=== PATIENT | female | born 1945 | race Caucasian/White ===

== ENCOUNTER → 2016-11-23 | Outpatient (CLI) | payer BC, OTHER ==
[~2016-11-23] MED LIST: ASPI-461 PO; B-CO1CAP5 PO; CALCTAB5 PO; CHOL1000 PO; DULO60CA44 PO; EPP3/2 IM; GLUC10007 PO; MAGN250T22 PO; OMEG10007 PO; POTA75TA PO; PRM625 PO; [UNRECOGNIZED DRUG - OTHER] PO
--- NOTE | 2016-11-23 14:19 | DIAGNOSTIC IMAGING REPORT ---
CT SINUSES WITH BRAIN LAB CT DOSE: 527.37 mGy.cm CLINICAL HISTORY: Chronic sinusitis. TECHNIQUE: Axial images of the sinuses were obtained without IV contrast. Coronal reformats were viewed. COMPARISON STUDY: None. FINDINGS: Visualized portions of the intracranial contents are unremarkable on this unenhanced exam. Mastoid air cells are clear. There is no fluid within the middle ears. Ossicles are intact. Orbits are unremarkable. No bony destruction is present. No mass is identified within the nasal cavity or the sinuses. There is no deviation of the nasal septum. There is minimal polypoid mucosal thickening of the right maxillary and ethmoid sinuses. No air-fluid levels are present. Major drainage pathways are patent. IMPRESSION: Minimal mucosal thickening of the sinuses. No evidence of acute sinusitis. Patent major drainage pathways. Electronically signed by: Julio Cesar Stephenson M.D. 11/23/2016 2:17 PM
== END | disposition home or self-care (01) ==
LOC: C.CTS 13:25
PROVIDERS: ATTEND Otolaryngology
DX: J32.9 Chronic sinusitis, unspecified (principal)

== ENCOUNTER → 2016-12-09 | Outpatient (CLI) | payer BC, OTHER ==
--- NOTE | 2016-12-15 09:57 | CODING QUERY NO DIAGNOSIS ---
TREATMENT RENDERED WITHOUT A DIAGNOSIS To promote full compliance with coding requirements relating to patient care, physician participation is requested in all cases of braille coder uncertainty. Please assist us with providing a diagnosis/symptom for the test(s) below: A diagnosis/symptom was not documented on your Order. A valid diagnosis/symptom is required to bill all insurances. Please remember that we are unable to code a diagnosis of rule out, probable, possible, questionable, or suspected. Tests that require a diagnosis: DOS: 12/09/16 * SKIN BIOPSY LEFT UPPER CHEST DIAGNOSIS: Provider Signature: Date: [facility] Once completed, please kindly fax back to [phone] For questions please call [phone]
== END | disposition home or self-care (01) ==
LOC: C.PATHSPEC 11:26
PROVIDERS: ATTEND Family Medicine
DX: L82.1 Other seborrheic keratosis (principal)

== ENCOUNTER → 2016-12-23 | Outpatient (CLI) | payer BC, OTHER ==
--- NOTE | 2016-12-23 18:26 | ECHOCARDIOGRAM REPORT ---
*NOTICE TO RECEIVING REPUBLICAN AGENCY This information is strictly Confidential and protected under [place] law. [place] law prohibits you from making any further disclosure of this information unless further disclosure is expressly permitted by the written consent of the person to whom it pertains or is authorized by law. A general authorization for the release of medical or other information is not sufficient for this purpose. Hospital accepts no responsibility if the information is made available to any other person, INCLUDING THE PATIENT. Interpretation Summary * Name: JESSE WONG Study Date: 12/23/2016 01:47 PM BP: 109/60 mmHg * Patient Location: [facility] HR: 51 * : 1945 (M/d/yyyy) Gender: Female Height: 63 in * Age: 71 yrs Ethnicity: CA Weight: 136 lb * Ordering Physician: Jabari Gaines * Performed By: Maude Lopez RCS * * Reason For Study: HEART MURMUR * BSA: 1.6 m2 * Normal biventricular systolic function. * Mild concentric left ventricular hypertrophy. * Left ventricular diastolic dysfunction. * Normal chamber dimensions. * No significant valvular abnormalities. * -- Conclusions -- * Aortic valve sclerosis mild, without significant aortic valvular stenosis. Procedure Details * A complete two-dimensional transthoracic echocardiogram was performed (2D, M-mode, Doppler and color flow Doppler). Left Ventricle * The left ventricle is normal in size. * There is borderline concentric left ventricular hypertrophy. * Ejection Fraction = 55-60%. * A full diastolic examination was done with clinical findings of Class I diastolic dysfunction. * Left ventricular systolic function is normal. * The left ventricular wall motion is normal. Right Ventricle * The right ventricle is normal in size and function. Atria * The left atrial size is normal. * Right atrial size is normal. * No ASD detected; PFO is not assessed. Mitral Valve * The mitral valve is normal. * There is no mitral valve stenosis. * There is no mitral regurgitation noted. Tricuspid Valve * The tricuspid valve is normal. * There is no tricuspid stenosis. * No tricuspid regurgitation. Aortic Valve * The aortic valve is trileaflet. * The aortic valve opens well. * Aortic valve sclerosis mild, without significant aortic valvular stenosis. * No aortic regurgitation is present. Pulmonic Valve * The pulmonic valve is not well visualized. * There is no pulmonic valvular stenosis. * There is no pulmonic valvular regurgitation. Great Vessels * The aortic root is normal size. * Normal inferior vena cava diameter and respiratory variation suggests normal central venous pressure. MMode 2D Measurements and Calculations IVSd 1.2 cm IVSs 1.6 cm LVIDd 3.8 cm LVIDs 2.8 cm LVPWd 1.2 cm LVPWs 1.1 cm IVS/LVPW 10 FS 25.7 % EDV(Teich) 63.3 ml ESV(Teich) 30.8 ml EF(Teich) 51.3 % EDV(cubed) 56.4 ml ESV(cubed) 23.1 ml EF(cubed) 59.0 % % IVS thick 37.7 % % LVPW thick -6.11 % LV mass(C)d 151.8 grams LV mass(C)dI 92.5 grams/m\S\2 LV mass(C)s 126.2 grams LV mass(C)sI 76.9 grams/m\S\2 SV(Teich) 32.5 ml SI(Teich) 19.8 ml/m\S\2 SV(cubed) 33.3 ml SI(cubed) 20.3 ml/m\S\2 Ao root diam 3.6 cm Ao root area 10.2 cm\S\2 LA dimension 2.8 cm LA/Ao 0.78 LVOT diam 1.9 cm LVOT area 2.9 cm\S\2 LVAd ap4 26.8 cm\S\2 LVLd ap4 7.7 cm EDV(MOD-sp4) 78.2 ml EDV(sp4-el) 78.9 ml LVAs ap4 15.6 cm\S\2 LVLs ap4 6.6 cm ESV(MOD-sp4) 30.1 ml ESV(sp4-el) 31.1 ml EF(MOD-sp4) 61.5 % EF(sp4-el) 60.6 % LVAd ap2 23.9 cm\S\2 LVLd ap2 8.0 cm EDV(MOD-sp2) 58.8 ml EDV(sp2-el) 60.6 ml LVAs ap2 15.3 cm\S\2 LVLs ap2 7.0 cm ESV(MOD-sp2) 28.0 ml ESV(sp2-el) 28.5 ml EF(MOD-sp2) 52.3 % EF(sp2-el) 53.1 % LVLd %diff 3.2 % EDV(MOD-bp) 68.9 ml LVLs %diff 5.3 % ESV(MOD-bp) 29.8 ml EF(MOD-bp) 56.8 % SV(MOD-sp4) 48.1 ml SI(MOD-sp4) 29.3 ml/m\S\2 SV(MOD-sp2) 30.7 ml SI(MOD-sp2) 18.7 ml/m\S\2 SV(MOD-bp) 39.1 ml SI(MOD-bp) 23.8 ml/m\S\2 SV(sp4-el) 47.8 ml SI(sp4-el) 29.1 ml/m\S\2 SV(sp2-el) 32.2 ml SI(sp2-el) 19.6 ml/m\S\2 Doppler Measurements and Calculations MV E max winifred 63.6 cm/sec MV A max winifred 70.1 cm/sec MV E/A 0.91 MV P1/2t max winifred 71.8 cm/sec MV P1/2t 103.1 msec MVA(P1/2t) 2.1 cm\S\2 MV dec slope 204.1 cm/sec\S\2 MV dec time 0.24 sec Ao V2 max 103.0 cm/sec Ao max PG 4.2 mmHg PA V2 max 76.5 cm/sec PA max PG 2.3 mmHg
== END | disposition home or self-care (01) ==
LOC: C.CPL 12:35
PROVIDERS: ATTEND Family Medicine
DX: R00.9 Unspecified abnormalities of heart beat (principal)

== ENCOUNTER → 2017-01-12 | Outpatient (CLI) | payer BC, OTHER ==
[2017-01-12 11:12] LABS: BASO % 0.5 %; BASO ABS # 0.04 K/uL (0-0.2); COMPLETE YES; HEMATOCRIT 41.7 % (37-47); IG% 0.1 %; LYMPH % 28.2 %; MEAN CELL VOLUME 93.5 fL (80-100); MEAN CORPUSCULAR HEMOGLOBIN 31.4 pg (25-34); MEAN CORPUSCULAR HGB CONC 33.6 g/dl (32-36); MEAN PLATELET VOLUME 9.2 fL (7.4-10.4); MONO % 7.6 %; NEUT % 61.6 %; PLATELET COUNT 294 K/uL (130-400); RED BLOOD COUNT 4.46 M/uL (4.2-5.4); WHITE BLOOD COUNT 7.81 K/uL (4.8-10.8)
[2017-01-12 11:26] LABS: ESTIMATED AVERAGE GLUCOSE 114 mg/dl; HA1C FLAG Normal (Normal)
[2017-01-12 11:54] LABS: ALT/SGPT 17 U/L (12-78); BLOOD UREA NITROGEN 17 mg/dl (7-18); BUN/CREATININE RATIO 18.7 (10-20); C-REACTIVE PROTEIN 0.29 mg/dl (0-0.29); CALCIUM 8.6 mg/dl (8.5-10.1); CARBON DIOXIDE 28 mmol/L (21-32); CHLORIDE 105 mmol/L (98-107); CHOLESTEROL 174 mg/dl (0-200); CREATININE 0.92 mg/dl (0.60-1.20); GLUCOSE 84 mg/dl (70-99); PHOSPHORUS 2.1 mg/dl (2.5-4.9); POTASSIUM 4.1 mmol/L (3.5-5.1); SODIUM 141 mmol/L (136-145); URIC ACID 3.5 mg/dl (2.6-7.2)
[2017-01-12 12:03] LABS: ALB/GLOB RATIO 1.1 (0.9-2); ALKALINE PHOSPHATASE 53 U/L (45-117); AST/SGOT 14 U/L (15-37); CHOLESTEROL/HDL RATIO 2.9; HDL CHOLESTEROL 59 mg/dl; LDL CHOLESTEROL CALCULATED 103 mg/dl; TRIGLYCERIDES 58 mg/dl (0-150); VERY LOW DENSITY LIPOPROT CALC 12 mg/dl
== END | disposition home or self-care (01) ==
LOC: C.LAB 10:31
PROVIDERS: ATTEND Family Medicine
DX: R73.09 Other abnormal glucose (principal); E55.9 Vitamin D deficiency, unspecified; D51.9 Vitamin B12 deficiency anemia, unspecified

== ENCOUNTER → 2017-03-06 | Outpatient (CLI) | payer BC, OTHER | END | disposition home or self-care (01) | LOC: C.MAMM 09:47 | PROVIDERS: ATTEND Family Medicine | DX: Z78.0 Asymptomatic menopausal state (principal) ==

== ENCOUNTER → 2017-10-03 | Outpatient (CLI) | payer BC, OTHER ==
--- NOTE | 2017-10-04 07:43 | MAMMOGRAPHY REPORT ---
BILATERAL DIGITAL SCREENING MAMMOGRAM WITH CAD: 10/03/2017 CLINICAL HISTORY: Routine screening. Patient has no complaints. TECHNIQUE: Bilateral CC and MLO views of the breasts with and without implant displacement views were obtained. Current study was also evaluated with a Computer Aided Detection (CAD) system. COMPARISON: Comparison is made to exams dated: 09/29/2016 mammogram, 09/17/2015 mammogram, 4 mammogram, 08/14/2013 mammogram, 08/09/2012 mammogram, and 08/08/2011 mammogram - [facility]. BREAST COMPOSITION: There are scattered areas of fibroglandular density in both breasts. FINDINGS: Bilateral subglandular silicone implants are stable compared to prior mammograms. No new suspicious mass, architectural distortion or cluster of microcalcifications is seen. IMPRESSION: ACR BI-RADS CATEGORY 1: NEGATIVE There is no mammographic evidence of malignancy. A 1 year screening mammogram is recommended. The pa tient will receive written notification of the results. Approximately 10% of breast cancers are not detected with mammography. A negative mammographic report should not delay biopsy if a clinically suggestive mass is present. Aliyah Valdes M.D. ay/:10/03/2017 15:10:02 Wire Spooler: Lorrie QUEEN(R)(M), [facility] letter sent: Normal 1/2 BI-RADS Code: ACR BI-RADS Category 1: Negative
== END | disposition home or self-care (01) ==
LOC: C.MAMM 09:09
PROVIDERS: ATTEND Family Medicine
DX: Z12.31 Encounter for screening mammogram for malignant neoplasm of breast (principal); Z98.82 Breast implant status

== ENCOUNTER → 2017-12-21 | Outpatient (CLI) | payer BC, OTHER ==
[2017-12-21 09:33] LABS: BASO % 0.5 %; BASO ABS # 0.04 K/uL (0-0.2); EOS % 1.8 %; EOS ABS # 0.14 K/uL (0-0.5); HEMATOCRIT 42.4 % (37-47); HEMOGLOBIN 14.1 g/dL (12.0-16.0); IG# 0.02 K/uL (0.00-0.02); LYMPH % 26.7 %; LYMPH ABS # 2.09 K/uL (1.2-3.4); MEAN CORPUSCULAR HEMOGLOBIN 32.3 pg (25-34); MEAN CORPUSCULAR HGB CONC 33.3 g/dl (32-36); MEAN PLATELET VOLUME 9.7 fL (7.4-10.4); MONO % 9.3 %; MONO ABS # 0.73 K/uL (0.11-0.59); NEUT % 61.4 %; PLATELET COUNT 283 K/uL (130-400); RED CELL DISTRIBUTION WIDTH CV 13.7 % (11.5-14.5); RED CELL DISTRIBUTION WIDTH SD 48.8 fL (36.4-46.3); WHITE BLOOD COUNT 7.82 K/uL (4.8-10.8)
[2017-12-21 10:02] LABS: ALBUMIN 3.4 gm/dl (3.4-5.0); ALT/SGPT 23 U/L (12-78); BLOOD UREA NITROGEN 17 mg/dl (7-18); CALCIUM 8.9 mg/dl (8.5-10.1); CARBON DIOXIDE 28 mmol/L (21-32); CHOLESTEROL 180 mg/dl (0-200); CREATININE 0.94 mg/dl (0.60-1.20); GLUCOSE 88 mg/dl (70-99); POTASSIUM 3.8 mmol/L (3.5-5.1); SODIUM 142 mmol/L (136-145); URIC ACID 3.6 mg/dl (2.6-7.2)
[2017-12-21 10:12] LABS: ALKALINE PHOSPHATASE 53 U/L (45-117); AST/SGOT 15 U/L (15-37); LDL CHOLESTEROL CALCULATED 113 mg/dl; TRANSFERRIN 201 mg/dl (200-360)
[2017-12-21 10:47] LABS: HEMOGLOBIN A1C 5.5 % (4.5-5.6)
== END | disposition home or self-care (01) ==
LOC: C.LAB 08:50
PROVIDERS: ATTEND Family Medicine
DX: R73.09 Other abnormal glucose (principal); E55.9 Vitamin D deficiency, unspecified; D51.9 Vitamin B12 deficiency anemia, unspecified; E78.9 Disorder of lipoprotein metabolism, unspecified; R53.83 Other fatigue

== ENCOUNTER → 2018-01-11 | Outpatient (CLI) | payer BC, OTHER ==
--- NOTE | 2018-01-11 10:48 | DIAGNOSTIC IMAGING REPORT ---
(BARIUM SWALLOW) ESOPHAGUS CLINICAL HISTORY: DYSPHAGIA COMPARISON STUDY: None FLUOROSCOPY TIME: 1.2 minutes. NUMBER OF FLUOROSCOPIC IMAGES: 25 FINDINGS: The patient swallowed effervescent granules and barium without difficulty. Rapid sequence swallows in the AP and lateral projections were unremarkable. There are postsurgical changes present within the cervical spine. No esophageal masses or ulcerations are visualized. The patient swallowed one half inch barium tablet without difficulty. IMPRESSION: Normal study Electronically signed by: Danilo Lawrence M.D. 01/11/2018 10:46 AM Dictated Date/Time: 01/11/2018 10:46 AM
== END | disposition home or self-care (01) ==
LOC: C.RAD 09:45
PROVIDERS: ATTEND Family Medicine
DX: R13.10 Dysphagia, unspecified (principal)

== ENCOUNTER → 2018-07-13 | Outpatient (CLI) | payer BC, OTHER ==
--- NOTE | 2018-07-13 13:46 | DIAGNOSTIC IMAGING REPORT ---
TWO VIEW CHEST CLINICAL HISTORY: Weight loss. FINDINGS: PA and lateral chest radiographs are compared to study dated 03/21/2007. The cardiomediastinal silhouette is unremarkable. Emphysema and chronic interstitial thickening are similar to previous. A nodular density projecting over the right lung base likely represents a nipple shadow. There is no airspace consolidation or pleural effusion. There is no pneumothorax. The skeletal structures are osteopenic. The bony thorax appears intact. Fusion hardware is seen in the lower cervical spine. A calcified left breast implant is noted. IMPRESSION: 1. Emphysematous change with no acute cardiopulmonary abnormality. 2. A nodular density projecting over the right lung base likely represents a nipple shadow. A repeat frontal view with nipple markers is recommended for confirmation. Electronically signed by: Troy Bauer M.D. 07/13/2018 1:44 PM Dictated Date/Time: 07/13/2018 1:42 PM
[2018-07-13 13:47] LABS: BASO % 0.6 %; BASO ABS # 0.04 K/uL (0-0.2); EOS % 0.8 %; EOS ABS # 0.06 K/uL (0-0.5); HEMATOCRIT 42.4 % (37-47); HEMOGLOBIN 13.9 g/dL (12.0-16.0); IG# 0.01 K/uL (0.00-0.02); LYMPH ABS # 1.64 K/uL (1.2-3.4); MEAN CELL VOLUME 96.6 fL (80-100); MEAN CORPUSCULAR HEMOGLOBIN 31.7 pg (25-34); MEAN CORPUSCULAR HGB CONC 32.8 g/dl (32-36); MEAN PLATELET VOLUME 10.1 fL (7.4-10.4); MONO % 8.3 %; MONO ABS # 0.59 K/uL (0.11-0.59); NEUT % 67.2 %; NEUT ABS # 4.78 K/uL (1.4-6.5); PLATELET COUNT 270 K/uL (130-400); RED CELL DISTRIBUTION WIDTH CV 13.5 % (11.5-14.5); RED CELL DISTRIBUTION WIDTH SD 47.9 fL (36.4-46.3); WHITE BLOOD COUNT 7.12 K/uL (4.8-10.8)
[2018-07-13 14:21] LABS: HEMOGLOBIN A1C 5.6 % (4.5-5.6)
[2018-07-13 14:51] LABS: ALBUMIN 3.7 gm/dl (3.4-5.0); ALKALINE PHOSPHATASE 52 U/L (45-117); ALT/SGPT 22 U/L (12-78); AST/SGOT 16 U/L (15-37); BLOOD UREA NITROGEN 16 mg/dl (7-18); CALCIUM 8.3 mg/dl (8.5-10.1); CARBON DIOXIDE 25 mmol/L (21-32); CHOLESTEROL 186 mg/dl (0-200); CREATININE 0.77 mg/dl (0.60-1.20); GLUCOSE 79 mg/dl (70-99); LDL CHOLESTEROL CALCULATED 102 mg/dl; POTASSIUM 3.9 mmol/L (3.5-5.1); SODIUM 141 mmol/L (136-145); TOTAL PROTEIN 7.1 gm/dl (6.4-8.2); TRANSFERRIN 193 mg/dl (200-360); URIC ACID 3.1 mg/dl (2.6-7.2)
== END | disposition home or self-care (01) ==
LOC: C.RAD 12:53
PROVIDERS: ATTEND Family Medicine
DX: R63.4 Abnormal weight loss (principal); R73.09 Other abnormal glucose; E55.9 Vitamin D deficiency, unspecified; D51.9 Vitamin B12 deficiency anemia, unspecified; E78.9 Disorder of lipoprotein metabolism, unspecified; R53.83 Other fatigue

== ENCOUNTER 2022-05-14 14:37 | Inpatient (IN) ==
[2022-05-14] MEDS ORDERED: ONDANSETRON INJ 2 MG/ML 2 ML VIAL IV STA ×2 (14:53→19:27)
[2022-05-14 15:40] LABS: Basophils # (auto) 0.01 K/uL (0-0.2); Basophils % (auto) 0.1 %; Eosinophils # (auto) 0.03 K/uL (0-0.5); Eosinophils % (auto) 0.3 %; Immature Granulocytes # (auto) 0.02 K/uL (0.00-0.02); Immature Granulocytes % (auto) 0.2 %; Lymphocytes # (auto) 1.15 K/uL (1.2-3.4); Lymphocytes % (auto) 10.7 %; Mean Corpuscular Hemoglobin 31.6 pg (25-34); Mean Corpuscular Volume 92.9 fL (80-100); Mean Platelet Volume 9.9 fL (7.4-10.4); Monocytes # (auto) 0.23 K/uL (0.11-0.59); Monocytes % (auto) 2.1 %; Neutrophils % (auto) 86.6 %; Platelet Count 253 K/uL (130-400); RDW Coefficient of Variation 14.3 % (11.5-14.5); RDW Standard Deviation 48.5 fL (36.4-46.3); Red Blood Count 5.06 M/uL (4.2-5.4); White Blood Count 10.74 K/uL (4.8-10.8)
[2022-05-14 16:07] LABS: Albumin Globulin Ratio 1.4 (0.9-2); Albumin Level 4.2 gm/dl (3.4-5.0); BUN Creatinine Ratio 22.3 (10-20); Bilirubin,Total 0.8 mg/dl (0.2-1.0); Creatinine Clr Calc Pharmacy 40.5 ml/min; Est GFR (African American) 61.6 ml/min; Est GFR (Non-African American) 53.1 ml/min; Total Protein 7.2 gm/dl (6.0-8.3)
[2022-05-14] MEDS ORDERED: ACETAMINOPHEN 1,000 MG/100 ML VIAL IV STA (16:16)
[2022-05-14] MEDS ORDERED: SODIUM CHLORIDE 0.9% 1000ML 1,000 ML IV ONE (16:16)
[2022-05-14] MEDS ORDERED: METOCLOPRAMIDE HCL INJ 5 MG/ML 2 ML VIAL IV ONE (16:16)
[2022-05-14] MEDS ORDERED: diphenhydrAMINE 50 MG/ML VIAL IV STA (16:16)
--- NOTE | 2022-05-14 16:21 | Emergency Department Note ---
History of Present Illness General Chief complaint: Abdominal Pain Stated complaint: REF BY MED EXP/NAUSEA ABD PAIN Time Seen by Provider: 05/14/22 16:00 Source: patient Mode of arrival: ambulatory Limitations: no limitations History of Present Illness Provider complaint: abdominal pain, constipation, nausea Onset (ago): day(s) 4 Maximum Pain Intensity: 9 This is a 76-year-old female presents emergency department with concern for 3 to 4 days of abdominal pain, burning in her throat, nausea, and constipation. Patient states she was trying to stay hydrated by sipping clear liquids at home. She did have a very small hard bowel movement last night and went again today. Denies black or bloody stools. States she has had some dry heaving no overt vomiting. She has had subjective fevers and chills but did not measure her temperature. Patient denies any change in diet, sick contact, recent travel. She states she was recently started on meloxicam for some foot pain that is being treated as an outpatient. Patient has previously had a bowel obstruction and that was her concern. She went to [facility] that she did not want to come to the emergency room and they were concerned that she needed a CAT scan and referred her here. Patient has had a prior hysterectomy. Pt seen during a time of high acuity and national emergency pandemic while wearing PPE. Home Medications Medication Instructions Recorded Confirmed Type calcium carbonate 600 mg-vitamin 1 tab PO UD 10/04/18 05/14/22 History D3 5 mcg (200 unit) capsule (Calcium 600 + D(3)) epinephrine 0.3 mg/0.3 mL 0.3 mg IM Q3H PRN 10/04/18 05/14/22 History injection, auto-injector (EpiPen 2-Mesfin) estradiol 0.075 mg/24 hr weekly 1 dose TOPICAL WK 10/04/18 05/14/22 History transdermal patch magnesium oxide 400 mg PO QPM 10/04/18 05/14/22 History pregabalin 100 mg capsule (Lyrica) 100 mg PO BID 10/04/18 05/14/22 History vitamin B complex 1 cap PO QAM 10/04/18 05/14/22 History aspirin 81 mg tablet,delayed 81 mg PO HS 11/19/20 05/14/22 History release cholecalciferol (vitamin D3) 50 50 mcg PO QDD 11/19/20 05/14/22 History mcg (2,000 unit) capsule umeclidinium 62.5 mcg-vilanterol 1 inh INHALATION DAILY PRN 12/30/20 05/14/22 History 25 mcg/actuation powdr for inhalation (Anoro Ellipta) atorvastatin 10 mg tablet (Lipitor) 10 mg PO HS 01/25/21 05/14/22 History potassium 99 mg tablet 99 mg PO QAM 03/05/21 05/14/22 History prednisone 1 mg tablet 2 mg PO QAM 03/05/21 05/14/22 History glucosamine sulfate 500 mg tablet 500 mg PO DAILY 05/14/22 05/14/22 History (Glucosamine) Allergies Allergy/AdvReac Type Severity Reaction Status Date / Time bee venom protein (honey bee) Allergy Severe SWELLING/RA Verified 05/14/22 18:20 SH,SOB Sulfa (Sulfonamide Allergy Intermediate HIVES Verified 05/14/22 18:20 Antibiotics) sulfamethoxazole Allergy Intermediate Hives Verified 05/14/22 18:20 trimethoprim Allergy Intermediate HIVES Verified 05/14/22 18:20 Past Med/Surg History Medical History Chronic steroid use Constipation COPD (chronic obstructive pulmonary disease) Per records Esophageal dysphagia reason for upcoming EGD. difficulty swallowing noticed after 2018 ACDF. Fibromyalgia On Lyrica History of syncope 11/19/20- seen in ER - dx'ed with back pain (had significant pain leading to syncopal episode- feel syncope was related to vasovagal event)- no issues since that time Hyperlipemia Per records- diet controlled Hypotension Chronic and stable per patient Osteoarthritis Surgical History History of arthroscopy R/L Knees History of arthroscopy RIGHT KNEE History of cervical spinal surgery 2004 or 2006 History of colonoscopy History of esophagogastroduodenoscopy (EGD) History of hysterectomy TOTAL History of repair of rotator cuff LEFT - 2004 Hx of breast augmentation BILAT Hx of lumbosacral spine surgery 1996 S/P cervical discectomy ACDF x2 levels (Dr Saxena) 2018 [facility]. S/P lumbar spinal fusion (01/25/21) L2-L5 Family History Mother Family history of diabetes mellitus Other No family history of adverse response to anesthesia Social History Smoking Status: Never smoker Tobacco Type: Cigarettes Cigarettes Per Day: 3-4 CIGS A DAY- SMOKES OCC (1/2 PACK PER WEEK); Second Hand Exposure: Yes; Hx Alcohol Use: Yes Alcohol type: wine Hx Substance Use: No Preferred Language: Greenlandic Communication Ability: Effective Visual Impairment: No Limitations Detention Sergeant Required: No Beliefs That Will Affect Care: None marital status: Current Living Situation: Spouse Feels Safe at Home: Yes Assistive Devices: Cane, Denture - Upper and Glasses Review of Systems A total of 10 systems reviewed and were otherwise negative All systems reviewed & are unremarkable except as noted in HPI & below Physical Exam Vital Signs Vital Signs - 24 hr 05/14/22 14:49 05/14/22 17:00 05/14/22 18:57 Temperature 36.5 C Temperature Source Temporal Artery Scan Pulse Rate 78 Pulse Rate [Apical] 70 70 Respiratory Rate 18 21 18 Blood Pressure 125/52 L Blood Pressure [Right Arm] 105/85 125/70 Blood Pressure Mean 76 Blood Pressure Mean [Right Arm] 91 88 Blood Pressure Position Sitting Pulse Oximetry 94 97 97 Oxygen Delivery Method Room Air Room Air Room Air Sepsis Recent Fever Within 48 Hours No Sepsis New/Unexplained Change in Mental Status No Sepsis Action Taken by Nursing No Action Required GENERAL: alert, well appearing, well nourished, no distress, non-toxic EYE EXAM: normal conjunctiva, PERRL and EOM's grossly intact OROPHARYNX: no exudate, no erythema, lips, buccal mucosa, and tongue normal and mucous membranes are moist NECK: supple, no nuchal rigidity, no adenopathy, non-tender LUNGS: Clear to auscultation. Normal chest wall mechanics, no w/r/r HEART: no murmurs, S1 normal and S2 normal ABDOMEN: abdomen soft, generalized tenderness with palpation, normo-active bowel sounds, no masses, no rebound or guarding. Mildly tympanitic to percussion. BACK: Back is symmetrical on inspection and there is no deformity, no midline tenderness, no CVA tenderness. SKIN: no rashes and no bruising UPPER EXTREMITIES: upper extremities are grossly normal. FROM, nml pulses b/l. LOWER EXTREMITIES: No pitting edema. FROM, nml pulses b/l. NEURO EXAM: Normal sensorium, cranial nerves II-XII grossly intact, normal speech, no gross weakness of arms, no gross weakness of legs. Gross sensation intact. Course Course 1919: Patient updated on lab and CT imaging and need for surgical evaluation. Patient states she is still having pain and nausea. 1939: Discussed with Dr. Ball. Would prefer medicine admit and he will come see in the Er. Would like NG tube placed. Administered Medications Sodium Chloride (Nss 1000ml) 1,000 mls @ 150 mls/hr IV .[id number] [place] Stop: 06/13/22 16:29 Last Admin: 05/14/22 22:13 Dose: 150 mls/hr Documented by: [id number] Infusion: 05/14/22 22:13 Dose: 150 mls/hr Documented by: [id number] Admin: 05/14/22 18:03 Dose: 150 mls/hr Documented by: [id number] Discontinued Medications Diphenhydramine HCl (Diphenhydramine 50 Mg/Ml Vial) 12.5 mg IV NOW STA Stop: 05/14/22 16:17 Last Admin: 05/14/22 16:48 Dose: 12.5 mg Documented by: [id number] Sodium Chloride (Nss 1000ml) 1,000 mls @ 999 mls/hr IV .Q1H1M ONE Stop: 05/14/22 17:16 Last Infusion: 05/14/22 18:03 Dose: 0 mls/hr Documented by: [id number] Admin: 05/14/22 16:47 Dose: 999 mls/hr Documented by: [id number] Acetaminophen (Ofirmev) 1,000 mg in 100 mls @ 400 mls/hr IV NOW STA Stop: 05/14/22 16:30 Last Infusion: 05/14/22 18:03 Dose: 0 mls/hr Documented by: [id number] Admin: 05/14/22 16:50 Dose: 400 mls/hr Documented by: [id number] Famotidine (Pepcid 20mg Iv Push) 20 mg in 5 mls @ 2.5 mls/min IV NOW STA Stop: 05/14/22 16:29 Last Admin: 05/14/22 16:47 Dose: 2.5 mls/min Documented by: [id number] Ioversol (Optiray 320 100ml) 94 ml IV ONCE ONE Stop: 05/14/22 18:40 Last Admin: 05/14/22 18:39 Dose: 94 ml Documented by: [id number] Metoclopramide HCl (Metoclopramide Hcl Inj 5 Mg/Ml 2 Ml Vial) 5 mg IV ONE ONE Stop: 05/14/22 16:17 Last Admin: 05/14/22 16:49 Dose: 5 mg Documented by: [id number] Morphine Sulfate (Morphine Sulfate 2 Mg/Ml Carp) 2 mg IV NOW STA Stop: 05/14/22 19:28 Last Admin: 05/14/22 21:03 Dose: Not Given Documented by: [id number] Ondansetron HCl (Ondansetron Inj 2 Mg/Ml 2 Ml Vial) 4 mg IV NOW STA Stop: 05/14/22 14:54 Last Admin: 05/14/22 15:30 Dose: 4 mg Documented by: [id number] Ondansetron HCl (Ondansetron Inj 2 Mg/Ml 2 Ml Vial) 4 mg IV NOW STA Stop: 05/14/22 19:28 Last Admin: 05/14/22 21:03 Dose: Not Given Documented by: [id number] Medical Decision Making Differential Diagnosis Differential diagnoses includes but is not limited to gastritis, peptic ulcer disease, GERD, gallbladder disease, pancreatitis, small bowel obstruction, acute coronary syndrome, pericarditis, ischemic bowel, irritable bowel disease, irritable bowel syndrome, appendicitis, diverticulitis, malignancy, hernia, urinary tract infection, torsion, [/ectopic (if female)], perforation, trauma, infectious. Medical Records Attestation: I reviewed the patient's medical records. Home Medications Current Medication List: was personally reviewed by me Laboratory Data Attestation: I reviewed the patient's lab results. Result diagrams: 05/14/22 15:28 05/14/22 15:28 Lab Results 05/14/22 05/14/22 Range/Units 15:28 15:28 WBC 10.74 (4.8-10.8) K/uL RBC 5.06 (4.2-5.4) M/uL Hgb 16.0 (12.0-16.0) g/dL Hct 47.0 (37-47) % MCV 92.9 (80-100) fL MCH 31.6 (25-34) pg MCHC 34.0 (32-36) g/dL RDW Std Deviation 48.5 H (36.4-46.3) fL RDW Coeff of Patsy 14.3 (11.5-14.5) % Plt Count 253 (130-400) K/uL MPV 9.9 (7.4-10.4) fL Immature Gran % (Auto) 0.2 % Neut % (Auto) 86.6 % Lymph % (Auto) 10.7 % Upton % (Auto) 2.1 % Eos % (Auto) 0.3 % Baso % (Auto) 0.1 % Neut # (Auto) 9.30 H (1.4-6.5) K/uL Lymph # (Auto) 1.15 L (1.2-3.4) K/uL Upton # (Auto) 0.23 (0.11-0.59) K/uL Eos # (Auto) 0.03 (0-0.5) K/uL Baso # (Auto) 0.01 (0-0.2) K/uL Immature Gran # (Auto) 0.02 (0.00-0.02) K/uL Sodium 140 (136-145) mmol/L Potassium 4.0 (3.5-5.1) mmol/L Chloride 101 (98-107) mmol/L Carbon Dioxide 31 (21-32) mmol/L Anion Gap 8 (3-11) BUN 23 (6-23) mg/dl Creatinine 1.03 (0.6-1.2) mg/dl Est Cr Clr Drug Dosing 40.5 ml/min Est GFR ( Amer) 61.6 ml/min Est GFR (Non-Af Amer) 53.1 ml/min BUN/Creatinine Ratio 22.3 H (10-20) Glucose 127 H (70-99(Fasting)) mg/dl Calcium 10.0 (8.5-10.1) mg/dl Total Bilirubin 0.8 (0.2-1.0) mg/dl AST 26 (13-39) U/L ALT 25 (7-52) U/L Alkaline Phosphatase 60 (34-104) U/L Total Protein 7.2 (6.0-8.3) gm/dl Albumin 4.2 (3.4-5.0) gm/dl Globulin 3.0 (2.5-4.0) gm/dl Albumin/Globulin Ratio 1.4 (0.9-2) Lipase 29 (11-82) U/L Imaging Data Radiologist's Impression: Abdomen/Pelvis CT 05/14/22 16:[address] WITH IV AND ORAL CONTRAST CT DOSE: 291.72 mGy.cm HISTORY: Acute generalized abdominal pain with distention abd pain, distended, r/o SBO TECHNIQUE: Multiaxial CT images of the abdomen and pelvis were performed fo llowing the IV administration of 94 cc of Optiray and oral contrast. A dose lowering technique was utilized adhering to the principles of ALARA. COMPARISON STUDY: CT abdomen and pelvis 11/03/2018. FINDINGS: Bilateral breast implants are partially imaged. There are left greater than right capsular calcifications. Subsegmental bibasilar densities suggest atelectasis. No pneumatosis or pneumoperitoneum. Unremarkable spleen, moderately atrophic pancreas, adrenal glands, gallbladder and liver. Patency of the hepatic and portal veins. Subcentimeter hypodense focus of the interpolar left kidney is too small to characterize, likely a cyst. Symmetric enhancement of the kidneys without hydronephrosis. No urolith identified. Unremarkable urinary bladder. Hysterectomy. No adnexal mass lesion. Atherosclerosis of the aorta without aneurysm. Unremarkable IVC. There is no lymphadenopathy. Contrast-filled distended stomach and duodenum. Numerous air and fluid-filled dilated loops of small bowel measure up to 3.5 cm transversely. There is a focal transition point within the anterior lower abdomen below the umbilicus with decompressed small bowel loops distal to this point. There is angulation of the small bowel with increased enhancement. No obstructing mass. Interloop edema is noted with trace abdominal pelvic ascites. Colonic diverticulosis. Retained enteric contrast within the large bowel. Normal appendix. Tiny fat filled periumbilical hernia. Unremarkable soft tissues. Posterior interbody leif and screw fusion of the L2-L5 vertebral bodies. No evidence of hardware complication. Prior L3 laminectomy. IMPRESSION: 1. High-grade small bowel obstruction with transition point in the midline infraumbilical lower abdomen, likely secondary to small bowel adhesions. 2. Interloop edema with small volume of abdominal pelvic ascites. No pneumoperitoneum. 3. Colonic diverticulosis without acute diverticulitis. 4. Normal appendix. ACT 112: Negative or not required by law. The above report was generated using voice recognition software. It may contain grammatical, syntax or spelling errors. Electronically signed by: Armando Jasso M.D. 05/14/2022 7:16 PM MDM Narrative An order was placed for continuous cardiac monitoring. The monitor shows a rate of _70__ with _normal sinus_ rhythm. This is a 76-year-old female who presents to the emergency department due to several days of abdominal pain, nausea, and concern for constipation. Patient concern for bowel obstruction as she has had that previously. Patient was afebrile and hemodynamically stable. Labs drawn and sent were reassuring. Patient was sent for CT imaging which did show a high-grade bowel obstruction. Case discussed with general surgery who requested hospitalist team to admit and he will come and see the patient in the emergency room as a consultant nurse. He did request that an NG tube be placed. Patient given medication for pain and nausea. IV fluids were running. Impression & Plan Abdominal pain, COPD (chronic obstructive pulmonary disease), SBO (small bowel obstruction), Hyperglycemia Discharge Plan Visit Data Chief Complaint: Abdominal Pain Stated Complaint: REF BY MED EXP/NAUSEA ABD PAIN ED Provider: Marilynn Lee Discharge Problem: Abdominal pain, COPD (chronic obstructive pulmonary disease), SBO (small bowel obstruction), Hyperglycemia Patient Disposition: Admitted As Inpatient Discharge Instructions Interventions: ED Discharge Assessment Last Done: 05/14/22 21:07 Discharge Problem: Abdominal pain Qualifiers: Abdominal location: generalized Qualified Code(s): R10.84 - Generalized abdominal pain COPD (chronic obstructive pulmonary disease) Qualifiers: COPD type: unspecified COPD Qualified Code(s): J44.9 - Chronic obstructive pulmonary disease, unspecified
[2022-05-14] MEDS ORDERED: FAMOTIDINE 20MG IV PUSH 20 MG/5 ML SYR IV STA (16:28)
[2022-05-14] MEDS: SODIUM CHLORIDE 0.9% 1000ML 1,000 ML IV SCH ×2 (18:03→22:13)
[2022-05-14] MEDS ORDERED: OPTIRAY 320 100ml IV ONE (18:39)
--- NOTE | 2022-05-14 19:18 | CT Scan Report ---
ABDOMEN AND PELVIS CT WITH IV AND ORAL CONTRAST CT DOSE: 291.72 mGy.cm HISTORY: Acute generalized abdominal pain with distention abd pain, distended, r/o SBO TECHNIQUE: Multiaxial CT images of the abdomen and pelvis were performed following the IV administrat ion of 94 cc of Optiray and oral contrast. A dose lowering technique was utilized adhering to the pr inciples of MOUSTAPHA. COMPARISON STUDY: CT abdomen and pelvis 11/03/2018. FINDINGS: Bilateral breast implants are partially imaged. There are left greater than right capsular calcifications. Subsegmental bibasilar densities suggest atelectasis. No pneumatosis or pneumoperiton eum. Unremarkable spleen, moderately atrophic pancreas, adrenal glands, gallbladder and liver. Patency of the hepatic and portal veins. Subcentimeter hypodense focus of the interpolar left kidney is too smal l to characterize, likely a cyst. Symmetric enhancement of the kidneys without hydronephrosis. No uro lith identified. Unremarkable urinary bladder. Hysterectomy. No adnexal mass lesion. Atherosclerosis of the aorta without aneurysm. Unremarkable IVC. There is no lymphadenopathy. Contrast-filled distended stomach and duodenum. Numerous air and fluid-filled dilated loops of small bowel measure up to 3.5 cm transversely. There is a focal transition point within the anterior lower abdomen below the umbilicus with decompressed small bowel loops distal to this point. There is angula tion of the small bowel with increased enhancement. No obstructing mass. Interloop edema is noted wit h trace abdominal pelvic ascites. Colonic diverticulosis. Retained enteric contrast within the large bowel. Normal appendix. Tiny fat filled periumbilical hernia. Unremarkable soft tissues. Posterior interbody leif and screw fusion of the L2-L5 vertebral bodies. No evidence of hardware complication. Prior L3 laminectomy. IMPRESSION: 1. High-grade small bowel obstruction with transition point in the midline infraumbilical lower abdom en, likely secondary to small bowel adhesions. 2. Interloop edema with small volume of abdominal pelvic ascites. No pneumoperitoneum. 3. Colonic diverticulosis without acute diverticulitis. 4. Normal appendix. ACT 112: Negative or not required by law. The above report was generated using voice recognition software. It may contain grammatical, syntax o r spelling errors. Electronically signed by: Armando Jasso M.D. 05/14/2022 7:16 PM
[2022-05-14] MEDS ORDERED: MoRPHine SULFATE 2 MG/ML CARP IV STA (19:27)
--- NOTE | 2022-05-14 19:51 | History & Physical Report ---
Date of Service May 14, 2022 Assessment & Plan (1) SBO (small bowel obstruction): Plan: - NPO with maintenance IVF. - NG tube attempted to be placed in ED, however without success. Give patient break for now, will retry later. - General surgery consulted, appreciate their recommendations and assistance. Right now, no plans for the OR, however low threshold for OR if patient becomes significantly worse overnight. Otherwise will reevaluate in AM. - IV Zofran, Reglan prn for nausea/vomiting, morphine as needed for nausea and pain control. - Lactate added onto labs drawn from ED for baseline. (2) Acute kidney injury: Plan: - CR 1.03, baseline ~0.60.8. - Likely in setting of decreased p.o. intake due to SBO. Also recently started on meloxicam for foot pain. - Will be n.p.o. but getting IV maintenance fluids. - Follow on morning BMP. Avoid nephrotoxins. (3) Fibromyalgia: Plan: - Holding all p.o. meds that cannot be converted to IV formulation. - Takes Lyrica 100 mg twice daily. (4) Hyperlipidemia: Plan: - Holding all p.o. meds that cannot be converted to IV formulation. - Takes atorvastatin 10 mg at night. (5) COPD (chronic obstructive pulmonary disease): Plan: - Anoro inhaler daily as needed. - Has not required since 2019. (6) CAD (coronary artery disease): Plan: - History of - Holding statin, aspirin for now. (7) Osteoarthritis: Plan: - Hold prednisone, calcium, vitamin D supplements, glucosamine, meloxicam. - No need for stress dose steroids at this time. Plan: - Admit to [facility]. - SCDs, Lovenox for VTE ppx. - Full Code. History of Present Illness Chief Complaint: Abdominal pain with nausea, vomiting x 3 days Primary Care Provider: Jabari Gaines MD Pema Smith is 76-year-old female with a past medical history significant for COPD, hyperlipidemia, fibromyalgia, and OA who presents today with abdominal pain. On , patient began experiencing sharp, diffuse abdominal pain associated with nausea and multiple episodes of emesis. She has been unable to eat much solid food, however has been staying hydrated with ice chips. She does note a decrease in bowel movements. She regularly has multiple BMs/day, however over the past 2 days has had decreases in amount and caliber. She has had on BM/day, but without flatulence. She does have a history of a bowel obstruction in the past, reports at that time did not require surgical intervention. She does have history of a distant open hysterectomy but denies any other abdominal surgeries. Denies fevers, chest pain, shortness breath, palpitations. In ED, she is hemodynamically stable, slightly hypertensive and elevated HR 97 likely secondary to ongoing pain and emesis. Labs largely unremarkable, with exception of slightly elevated creatinine at 1.03. CT A/P showed high-grade small bowel obstruction with a transition point in the midline infraumbilical lower abdomen, with associated and lipidemia and small volume of pelvic ascites, without pneumoperitoneum. Allergies Allergy/AdvReac Type Severity Reaction Status Date / Time bee venom protein (honey bee) Allergy Severe SWELLING/RA Verified 05/14/22 18:20 SH,SOB Sulfa (Sulfonamide Allergy Intermediate HIVES Verified 05/14/22 18:20 Antibiotics) sulfamethoxazole Allergy Intermediate Hives Verified 05/14/22 18:20 trimethoprim Allergy Intermediate HIVES Verified 05/14/22 18:20 Home Medications Medication Instructions Recorded Confirmed Type calcium carbonate 600 mg-vitamin 1 tab PO UD 10/04/18 05/14/22 History D3 5 mcg (200 unit) capsule (Calcium 600 + D(3)) epinephrine 0.3 mg/0.3 mL 0.3 mg IM Q3H PRN 10/04/18 05/14/22 History injection, auto-injector (EpiPen 2-Mesfin) estradiol 0.075 mg/24 hr weekly 1 dose TOPICAL WK 10/04/18 05/14/22 History transdermal patch magnesium oxide 400 mg PO QPM 10/04/18 05/14/22 History pregabalin 100 mg capsule (Lyrica) 100 mg PO BID 10/04/18 05/14/22 History vitamin B complex 1 cap PO QAM 10/04/18 05/14/22 History aspirin 81 mg tablet,delayed 81 mg PO HS 11/19/20 05/14/22 History release cholecalciferol (vitamin D3) 50 50 mcg PO QDD 11/19/20 05/14/22 History mcg (2,000 unit) capsule umeclidinium 62.5 mcg-vilanterol 1 inh INHALATION DAILY PRN 12/30/20 05/14/22 History 25 mcg/actuation powdr for inhalation (Anoro Ellipta) atorvastatin 10 mg tablet (Lipitor) 10 mg PO HS 01/25/21 05/14/22 History potassium 99 mg tablet 99 mg PO QAM 03/05/21 05/14/22 History prednisone 1 mg tablet 2 mg PO QAM 03/05/21 05/14/22 History glucosamine sulfate 500 mg tablet 500 mg PO DAILY 05/14/22 05/14/22 History (Glucosamine) diphenhydramine HCl 25 mg tablet 25 mg PO HS PRN 05/15/22 05/15/22 History Past Med/Surg History Medical History Chronic steroid use Constipation COPD (chronic obstructive pulmonary disease) Per records Esophageal dysphagia reason for upcoming EGD. difficulty swallowing noticed after 2018 ACDF. Fibromyalgia On Lyrica History of syncope 11/19/20- seen in ER - dx'ed with back pain (had significant pain leading to syncopal episode- feel syncope was related to vasovagal event)- no issues since that time Hyperlipemia Per records- diet controlled Hypotension Chronic and stable per patient Osteoarthritis Surgical History History of arthroscopy R/L Knees History of arthroscopy RIGHT KNEE History of cervical spinal surgery 2004 or 2006 History of colonoscopy History of esophagogastroduodenoscopy (EGD) History of hysterectomy TOTAL History of repair of rotator cuff LEFT - 2004 Hx of breast augmentation BILAT Hx of lumbosacral spine surgery 1996 S/P cervical discectomy ACDF x2 levels (Dr Saxena) 2018 [facility]. S/P lumbar spinal fusion (01/25/21) L2-L5 Family History Mother Family history of diabetes mellitus Other No family history of adverse response to anesthesia Social History Smoking Status: Current some day smoker Tobacco Type: Cigarettes Cigarettes Per Day: 1; Second Hand Exposure: No; Hx Alcohol Use: Yes Alcohol type: wine Hx Substance Use: No Preferred Language: Bahraini Communication Ability: Effective Visual Impairment: No Limitations Program Coordinator Required: No Beliefs That Will Affect Care: None marital status: Current Living Situation: Spouse Feels Safe at Home: Yes Assistive Devices: Denture - Upper, Denture - Lower and Glasses Review of Systems Review of Systems: Constitutional: No fever/chills, weakness, fatigue, myalgias, anorexia, night sweats Eyes: No diplopia, no worsening or blurred vision ENT: normal hearing, no trouble swallowing Respiratory: No cough, sputum, dyspnea at rest or on exertion Cardiovascular: No chest pain, tightness or palpitations Abdomen: Abdominal pain x3 days, with nausea, emesis; no diarrhea, constipation : Denies dysuria, hematuria, increased urgency/frequency, urinary retention Musculoskeletal: No joint pain, calf pain, swelling Neurologic: No weakness, numbness/tingling, or balance problems Psychiatric: No anxiety or depression Skin: No rash or itch Physical Exam Physical Exam: General: awake, alert, no apparent distress Head: Normocephalic, atraumatic ENT: PERRL, EOMI, no pharyngeal exudate, mucous membranes moist Chest: Clear to auscultation, on room air, no adventitious breath sounds Cardiac: Regular rate and rhythm, no murmur, no JVD, normal peripheral pulses, good capillary refill Abdominal: Abdomen diffusely tender to palpation, but without rebound or guarding; NABS throughout. Tympanic to percussion. Extremities: Normal inspection, no peripheral edema or erythema, calfs nontender to palpation Psych: Normal mood and affect Neuro: AAO x 3, strength intact bilaterally and rated 5/5, no motor deficits, speech is clear, no peripheral sensory deficits Skin: no rash or erythema Results & Data Results & Data ([facility]) Vital Signs (Past 12 Hours) Vital Signs Temp Pulse Pulse Resp BP BP Pulse Ox 05/14/22 18:57 70 18 125/70 97 05/14/22 17:00 70 21 105/85 97 05/14/22 14:49 36.5 C 78 18 125/52 L 94 Laboratory Results Abnormal lab results 05/14/22 05/14/22 Range/Units 15:28 15:28 RDW Std Deviation 48.5 H (36.4-46.3) fL Neut # (Auto) 9.30 H (1.4-6.5) K/uL Lymph # (Auto) 1.15 L (1.2-3.4) K/uL BUN/Creatinine Ratio 22.3 H (10-20) Glucose 127 H (70-99(Fasting)) mg/dl Diagnostic Findings Abdomen/Pelvis CT 05/14/22 16:[address] WITH IV AND ORAL CONTRAST CT DOSE: 291.72 mGy.cm HISTORY: Acute generalized abdominal pain with distention abd pain, distended, r/o SBO TECHNIQUE: Multiaxial CT images of the abdomen and pelvis were performed following the IV administration of 94 cc of Optiray and oral contrast. A dose l owering technique was utilized adhering to the principles of ALARA. COMPARISON STUDY: CT abdomen and pelvis 11/03/2018. FINDINGS: Bilateral breast implants are partially imaged. There are left greater than right capsular calcifications. Subsegmental bibasilar densities suggest atelectasis. No pneumatosis or pneumoperitoneum. Unremarkable spleen, moderately atrophic pancreas, adrenal glands, gallbladder and liver. Patency of the hepatic and portal veins. Subcentimeter hypodense focus of the interpolar left kidney is too small to characterize, likely a cyst. Symmetric enhancement of the kidneys without hydronephrosis. No urolith identified. Unremarkable urinary bladder. Hysterectomy. No adnexal mass lesion. Atherosclerosis of the aorta without aneurysm. Unremarkable IVC. There is no ly mphadenopathy. Contrast-filled distended stomach and duodenum. Numerous air and fluid-filled dilated loops of small bowel measure up to 3.5 cm transversely. There is a focal transition point within the anterior lower abdomen below the umbilicus with decompressed small bowel loops distal to this point. There is angulation of the small bowel with increased enhancement. No obstructing mass. Interloop edema is noted with trace abdominal pelvic ascites. Colonic diverticulosis. Retained enteric contrast within the large bowel. Normal appendix. Tiny fat filled periumbilical hernia. Unremarkable soft tissues. Posterior interbody leif and screw fusion of the L2-L5 vertebral bodies. No evidence of hardware complication. Prior L3 laminectomy. IMPRESSION: 1. High-grade small bowel obstruction with transition point in the midline infraumbilical lower abdomen, likely secondary to small bowel adhesions. 2. Interloop edema with small volume of abdominal pelvic ascites. No pneumoperitoneum. 3. Colonic diverticulosis without acute diverticulitis. 4. Normal appendix. ACT 112: Negative or not required by law. The above report was generated using voice recognition software. It may contain grammatical, syntax or spelling errors. Electronically signed by: Armando Jasso M.D. 05/14/2022 7:16 PM Code Status & VTE Plan Code Status Full Code. Supervising Physician Co-Signing Physician Notes Attending addendum: I have physically seen this patient, have supervised the MOE's activities, and agree with the H&P unless as otherwise noted. Assessment and Plan: Small bowel obstruction- High-grade small bowel obstruction with transition point in midline infraumbilical hernia NPO attempting NG tube Zofran 4 mg IV every 6 hours as needed Famotidine 20 mg IV every 12 hours Zosyn 4.5 g IV every 8 hours General surgery has seen and assessed the patient in the ED Acute kidney injury- Creatinine 1.03 on admission, with base 0.6-0.8 IV fluids as noted above Repeat laboratories in a.m. Remaining orders and notations as noted PG Care Time/CCT Total # of Minutes Spent Total Time Spent with Patient: Total time spent is greater than 50% in coordination of care (as documented) at patient's floor/unit and/or counseling patient: Coding Level of Care Code 73233 Initial Inpt Care Lvl 3 Diagnoses SBO (small bowel obstruction) K56.609 Fibromyalgia M79.7 Hyperlipidemia E78.5 COPD (chronic obstructive pulmonary disease) J44.9 Acute kidney injury N17.9 CAD (coronary artery disease) I25.10 Osteoarthritis M19.90
--- NOTE | 2022-05-14 20:32 | Surgery Consultation ---
Date of Consultation May 14, 2022 Assessment & Plan (1) SBO (small bowel obstruction): CT images and results personally viewed by me, she does have some mild edema and pelvic ascites without any pneumatosis or signs of bowel ischemia She is being admitted to the medical service we will keep her n.p.o. with IV fluids Would recommend an NG tube placement if possible due to her stomach being very distended on her CT scan Her labs were reviewed she has no leukocytosis but does have a left shift and her other labs are otherwise unremarkable I did discuss with the medical team to obtain a lactate for baseline No plans for emergent surgical intervention at this time Will follow along and if her condition worsens or does not improve she may require exploration History of Present Illness Reason for Consultation: Small bowel obstruction Requesting Physician: Dr. Lee History of Present Illness This is a 76-year-old female who presents to the emergency department with 2 days of generalized abdominal pain, sharp in nature, without radiation. She denies any alleviating or worsening factors. She states that originally occurred after dinner night. She does admit to some associated nausea and vomiting as well. She has had some small bowel movements the last 2 days but nothing substantial. She denies passing any flatus. She denies any fevers or chills. She has a history of an open hysterectomy many years ago but otherwise denies any abdominal surgeries. Allergies Allergy/AdvReac Type Severity Reaction Status Date / Time bee venom protein (honey bee) Allergy Severe SWELLING/RA Verified 05/14/22 18:20 SH,SOB Sulfa (Sulfonamide Allergy Intermediate HIVES Verified 05/14/22 18:20 Antibiotics) sulfamethoxazole Allergy Intermediate Hives Verified 05/14/22 18:20 trimethoprim Allergy Intermediate HIVES Verified 05/14/22 18:20 Home Medications Medication Instructions Recorded Confirmed Type calcium carbonate 600 mg-vitamin 1 tab PO UD 10/04/18 05/14/22 History D3 5 mcg (200 unit) capsule (Calcium 600 + D(3)) epinephrine 0.3 mg/0.3 mL 0.3 mg IM Q3H PRN 10/04/18 05/14/22 History injection, auto-injector (EpiPen 2-Mesfin) estradiol 0.075 mg/24 hr weekly 1 dose TOPICAL WK 10/04/18 05/14/22 History transdermal patch magnesium oxide 400 mg PO QPM 10/04/18 05/14/22 History pregabalin 100 mg capsule (Lyrica) 100 mg PO BID 10/04/18 05/14/22 History vitamin B complex 1 cap PO QAM 10/04/18 05/14/22 History aspirin 81 mg tablet,delayed 81 mg PO HS 11/19/20 05/14/22 History release cholecalciferol (vitamin D3) 50 50 mcg PO QDD 11/19/20 05/14/22 History mcg (2,000 unit) capsule umeclidinium 62.5 mcg-vilanterol 1 inh INHALATION DAILY PRN 12/30/20 05/14/22 History 25 mcg/actuation powdr for inhalation (Anoro Ellipta) atorvastatin 10 mg tablet (Lipitor) 10 mg PO HS 01/25/21 05/14/22 History potassium 99 mg tablet 99 mg PO QAM 03/05/21 05/14/22 History prednisone 1 mg tablet 2 mg PO QAM 03/05/21 05/14/22 History glucosamine sulfate 500 mg tablet 500 mg PO DAILY 05/14/22 05/14/22 History (Glucosamine) Patient History Medical History Chronic steroid use Constipation COPD (chronic obstructive pulmonary disease) Per records Esophageal dysphagia reason for upcoming EGD. difficulty swallowing noticed after 2017 ACDF. Fibromyalgia On Lyrica History of syncope 11/19/20- seen in ER - dx'ed with back pain (had significant pain leading to syncopal episode- feel syncope was related to vasovagal event)- no issues since that time Hyperlipemia Per records- diet controlled Hypotension Chronic and stable per patient Osteoarthritis Surgical History History of arthroscopy R/L Knees History of arthroscopy RIGHT KNEE History of cervical spinal surgery 2004 or 2006 History of colonoscopy History of esophagogastroduodenoscopy (EGD) History of hysterectomy TOTAL History of repair of rotator cuff LEFT - 2004 Hx of breast augmentation BILAT Hx of lumbosacral spine surgery 1996 S/P cervical discectomy ACDF x2 levels (Dr Saxena) 2018 [facility]. S/P lumbar spinal fusion (01/25/21) L2-L5 Family History Mother Family history of diabetes mellitus Other No family history of adverse response to anesthesia Social History Smoking Status: Never smoker Tobacco Type: Cigarettes Cigarettes Per Day: 3-4 CIGS A DAY- SMOKES OCC (1/2 PACK PER WEEK); Second Hand Exposure: Yes; Hx Alcohol Use: Yes Alcohol type: wine Hx Substance Use: No Preferred Language: Malawian Communication Ability: Effective Visual Impairment: No Limitations Hair Boiler Operator Required: No Beliefs That Will Affect Care: None marital status: Current Living Situation: Spouse Feels Safe at Home: Yes Assistive Devices: Cane, Denture - Upper and Glasses Review of Systems Constitutional: no fever and no chills Eyes: no worsening vision Ear, Nose, Mouth, Throat: no ear pain and no hearing loss Respiratory: no cough and no dyspnea History COPD Cardiovascular: no chest pain and no dyspnea on exertion Gastrointestinal: + abdominal pain, + bloating, + nausea, + vomiting and + constipation; no diarrhea/loose stools and no blood in stools Genitourinary: no dysuria Musculoskeletal: no back pain and no neck pain Integumentary: no rash, no skin ulcer, no sores and no wounds Neurologic: no headache(s) Psychiatric: no behavioral changes and no depression Hematologic / Lymphatic: no easy bleeding and no easy bruising Physical Exam Constitutional: WD/WN, vitals as above Eyes: PERRL, conjunctivae normal, anicteric sclerae ENMT: external ear and nose normal, oropharynx normal Neck: trachea midline, no thyromegaly Respiratory: normal respiratory effort, lungs clear to auscultation Cardiovascular: RRR, no murmur, no edema Gastrointestinal (Abdomen): Inspection/Auscultation: abdomen normal to inspection and + abdomen distended (Mild) Percussion/Palpation: + abdomen tender (Generalized), abdomen soft and + hernia; no guarding and abdomen not rigid Musculoskeletal: no cyanosis or clubbing, extremities motor strength 5/5 Skin: no rashes, warm and dry Neurologic: PERRL, EOMI, accommodation nl, no face palsy, no dysarthria Psychiatric: A+Ox3, euthymic affect Results & Data ([facility]) Vital Signs (Past 12 Hours) Vital Signs Temp Pulse Pulse Resp BP BP Pulse Ox 05/14/22 20:02 97 H 20 144/105 H 92 05/14/22 18:57 70 18 125/70 97 05/14/22 17:00 70 21 105/85 97 05/14/22 14:49 36.5 C 78 18 125/52 L 94 Diagnostic Findings ABDOMEN AND PELVIS CT WITH IV AND ORAL CONTRAST CT DOSE: 291.72 mGy.cm HISTORY: Acute generalized abdominal pain with distention abd pain, distended, r/o SBO TECHNIQUE: Multiaxial CT images of the abdomen and pelvis were performed following the IV administration of 94 cc of Optiray and oral contrast. A dose lowering technique was utilized adhering to the principles of ALARA. COMPARISON STUDY: CT abdomen and pelvis 11/03/2018. FINDINGS: Bilateral breast implants are partially imaged. There are left greater than right capsular calcifications. Subsegmental bibasilar densities suggest atelectasis. No pneumatosis or pneumoperitoneum. Unremarkable spleen, moderately atrophic pancreas, adrenal glands, gallbladder and liver. Patency of the hepatic and portal veins. Subcentimeter hypodense focus of the interpolar left kidney is too small to characterize, likely a cyst. Symmetric enhancement of the kidneys without hydronephrosis. No urolith identified. Unremarkable urinary bladder. Hysterectomy. No adnexal mass lesion. Atherosclerosis of the aorta without aneurysm. Unremarkable IVC. There is no lymphadenopathy. Contrast-filled distended stomach and duodenum. Numerous air and fluid-filled dilated loops of small bowel measure up to 3.5 cm transversely. There is a focal transition point within the anterior lower abdomen below the umbilicus with decompressed small bowel loops distal to this point. There is angulation of the small bowel with increased enhancement. No obstructing mass. Interloop edema is noted with trace abdominal pelvic ascites. Colonic diverticulosis. Retained enteric contrast within the large bowel. Normal appendix. Tiny fat filled periumbilical hernia. Unremarkable soft tissues. Posterior interbody leif and screw fusion of the L2-L5 vertebral bodies. No evidence of hardware complication. Prior L3 laminectomy. IMPRESSION: 1. High-grade small bowel obstruction with transition point in the midline infraumbilical lower abdomen, likely secondary to small bowel adhesions. 2. Interloop edema with small volume of abdominal pelvic ascites. No pneumoperitoneum. 3. Colonic diverticulosis without acute diverticulitis. 4. Normal appendix. PG Care Time/CCT Total # of Minutes Spent Total Time Spent with Patient: Total time spent is greater than 50% in coordination of care (as documented) at patient's floor/unit and/or counseling patient: Coding Level of Care Code 89144 Office/OBS Consult Lvl 5 Diagnoses SBO (small bowel obstruction) K56.609
[2022-05-14] MEDS ORDERED: ONDANSETRON INJ 2 MG/ML 2 ML VIAL IV PRN (21:59)
[2022-05-14] MEDS ORDERED: METOCLOPRAMIDE HCL INJ 5 MG/ML 2 ML VIAL IV PRN (21:59)
[2022-05-14] MEDS ORDERED: POLYETHYLENE (MIRALAX) 17 GM PACK PO PRN (21:59)
[2022-05-14] MEDS ORDERED: MoRPHine SULFATE 2 MG/ML CARP IV PRN (21:59)
[2022-05-14] MEDS ORDERED: MoRPHine SULFATE 4 MG/ML 1 ML CARP\\VIAL IV PRN (21:59)
[2022-05-14 23:45] LABS: Appearance Urine Clear (Clear); Bacteria Urine Automated Negative (Negative); Bilirubin Urine Negative (Negative); Blood Urine 1+ (Negative); Color Urine Yellow; Epithelial Cell Urine Auto >30 /lpf (0-5); Glucose Urine UA Negative (Negative); Ketones Urine 1+ (Negative); Leukocyte Esterase Urine Negative (Negative); Nitrite Urine Negative (Negative); Protein Urine Trace (Negative); Specific Gravity Urine > 1.045 (1.000-1.030); Urobilinogen Urine Negative (Negative); pH Urine 5.5 (4.5-7.5)
[2022-05-14 23:56] LABS: Cast Urine Automated 0 /lpf (0-5); Mucus Urine Present (None Prsent)
[2022-05-15] MEDS: ACETAMINOPHEN 1000 MG/100 ML IV IV PRN ×2 (03:35→11:44)
[2022-05-15] MEDS: SODIUM CHLORIDE 0.9% 1000ML 1,000 ML IV SCH ×3 (04:57→18:25)
[2022-05-15 07:13] LABS: Basophils # (auto) 0.01 K/uL (0-0.2); Basophils % (auto) 0.3 %; Lymphocytes # (auto) 0.27 K/uL (1.2-3.4); Mean Corpuscular Hemoglobin 31.7 pg (25-34); Mean Corpuscular Hgb Conc 34.2 g/dL (32-36); Mean Corpuscular Volume 92.7 fL (80-100); Mean Platelet Volume 10.4 fL (7.4-10.4); Monocytes # (auto) 0.48 K/uL (0.11-0.59); Monocytes % (auto) 14.3 %; Neutrophils % (auto) 77.4 %; Platelet Count 216 K/uL (130-400); RDW Coefficient of Variation 14.1 % (11.5-14.5); RDW Standard Deviation 48.4 fL (36.4-46.3); White Blood Count 3.36 K/uL (4.8-10.8)
[2022-05-15 07:47] LABS: Est GFR (African American) 98.2 ml/min; Est GFR (Non-African American) 84.8 ml/min; Potassium 3.8 mmol/L (3.5-5.1)
[2022-05-15 07:48] LABS: BUN Creatinine Ratio 24.3 (10-20); Calcium 8.1 mg/dl (8.5-10.1); Creatinine Clr Calc Pharmacy 60.8 ml/min; Magnesium 1.7 mg/dl (1.7-2.4)
--- NOTE | 2022-05-15 08:48 | Surgery Progress Note ---
Date of Service May 15, 2022 Assessment & Plan (1) SBO (small bowel obstruction): Plan: some improvement with NG decompression HR normal will check KUB in AM seen with Dr. Ball Admission and Anticipated Discharge Date Admission Date: May 14, 2022 Supervising Physician Co-Signing Physician Notes I personally saw and evaluated the patient with Wyatt Abrams PA-C and agree with the assessment and plan. 76-year-old female with a small bowel obstruction, likely due to adhesions She has some improvement after NG tube placement and complaining of less abdominal pain No fevers or tachycardia, lactate normal We will continue to monitor her abdominal exam and repeat a KUB in the morning If she fails to improve over the next 24 hours, she may need exploration Subjective feels better after NG placed Physical Exam Constitutional: WD/WN, vitals as above Gastrointestinal (Abdomen): Inspection/Auscultation: + abdomen distended Percussion/Palpation: + abdomen tender (left abdomen) and abdomen soft Results & Data ([facility]) Vital Signs (Past 12 Hours) Vital Signs Temp Pulse Pulse Resp BP Pulse Ox 05/15/22 07:15 74 110/67 05/15/22 06:08 37.0 C 70 16 96/55 L 92 05/14/22 21:40 37.2 C 76 18 117/71 93 05/14/22 21:26 112/68 05/14/22 21:00 73 22 93 PG Care Time/CCT Total # of Minutes Spent Total Time Spent with Patient: Total time spent is greater than 50% in coordination of care (as documented) at patient's floor/unit and/or counseling patient: Coding Level of Care Code 94785 Subs Hosp Care Lvl 1 Diagnoses SBO (small bowel obstruction) K56.609
--- NOTE | 2022-05-15 09:19 | XRay Report ---
XR KUB/Abdomen 1 view CLINICAL HISTORY: NG tube placement confirmation TECHNIQUE: 1 view of the abdomen was obtained. Comparison: Comparison is made to CT abdomen pelvis 05/14/2022 FINDINGS: Enteric tube side-port is within the stomach. Posterior fixation hardware is seen. Multiple distended loops of small bowel are seen measuring up to 45 mm in diameter. Small stool burden is seen. IMPRESSION: 1. Satisfactory position of enteric tube. 2. Redemonstration of small bowel obstruction. ACT 112: Negative or not required by law. Electronically signed by: Kemal Mueller M.D. 05/15/2022 9:17 AM
--- NOTE | 2022-05-15 11:30 | Hospitalist Progress Note ---
Date of Service May 15, 2022 Assessment & Plan (1) SBO (small bowel obstruction): Plan: Second episode. First was about 5 years ago and resolved without surgery. Only prior abdominal sx was a hysterectomy. - NPO with maintenance IVF. - NG tube on low-intermittent suction - General surgery consulted, appreciate their recommendations and assistance. Right now, no plans for the OR. - IV Zofran, Reglan prn for nausea/vomiting, morphine as needed for nausea and pain control. (2) Acute kidney injury: Plan: - CR 1.03, baseline ~0.60.8. - Likely in setting of decreased p.o. intake due to SBO. Also recently started on meloxicam for foot pain. - Follow on morning BMP. Avoid nephrotoxins. -> Cr improving today: 0.7. (3) Fibromyalgia: Plan: - Holding all p.o. meds that cannot be converted to IV formulation. - Takes Lyrica 100 mg twice daily. (4) Hyperlipidemia: Plan: - Holding all p.o. meds that cannot be converted to IV formulation. - Takes atorvastatin 10 mg at night. (5) COPD (chronic obstructive pulmonary disease): Plan: - Anoro inhaler daily as needed. - Has not required since 2019. (6) CAD (coronary artery disease): Plan: No present chest pain or concern for acute cardiac issue. - Holding statin, aspirin for now. (7) Osteoarthritis: Plan: - Hold prednisone, calcium, vitamin D supplements, glucosamine, meloxicam. - No need for stress dose steroids at this time. Plan: - SCDs - Holding heparin in case there is need of surgery. Admission and Anticipated Discharge Date Admission Date: May 14, 2022 Subjective Some improvement in the pain and bloating from yesterday after the NG tube as in place. No passing gas though. Reports no fevers/chills, chest pain, shortness of breath, nausea, or vomiting. Physical Exam Constitutional: WD/WN, vitals as above Eyes: EOM intact bilaterally; no conjunctival abnormality ENMT: Nose: + foreign body in naris (NG tube) Neck: trachea midline, no thyromegaly normal visual inspection Respiratory: normal respiratory effort, lungs clear to auscultation no respiratory distress Cardiovascular: RRR, no murmur, no edema Gastrointestinal (Abdomen): Inspection/Auscultation: abdomen normal to inspection and + hypoactive bowel sounds; abdomen not distended Percussion/Palpation: + abdomen tender (Mostly in LUQ) and abdomen soft; no guarding and abdomen not rigid Musculoskeletal: no cyanosis or clubbing, extremities motor strength 5/5 Skin: no rashes, warm and dry Neurologic: moves all extremities and awake Psychiatric: Orientation: alert, oriented to person and cooperative Results & Data Results & Data ([facility]) Vital Signs (Past 12 Hours) Vital Signs Temp Pulse Resp BP Pulse Ox 05/15/22 07:15 74 110/67 05/15/22 06:08 37.0 C 70 16 96/55 L 92 PG Care Time/CCT Total # of Minutes Spent Total Time Spent with Patient: Total time spent is greater than 50% in coordination of care (as documented) at patient's floor/unit and/or counseling patient: Coding Level of Care Code 43510 Subseq Hosp Care Lvl 3 Diagnoses SBO (small bowel obstruction) K56.609 Acute kidney injury N17.9 Fibromyalgia M79.7 Hyperlipidemia E78.5 COPD (chronic obstructive pulmonary disease) J44.9 COPD type: unspecified COPD CAD (coronary artery disease) I25.10 Osteoarthritis M19.90 (1) COPD (chronic obstructive pulmonary disease) COPD type: unspecified COPD Qualified Code(s): J44.9 - Chronic obstructive pulmonary disease, unspecified
[2022-05-15] MEDS ORDERED: KETOROLAC TROMETHAMINE 15 MG/ML VIAL IV PRN (13:47)
[2022-05-15] MEDS: CHLORASEPTIC 1.4% SOLN 180 ML BTL MT PRN ×2 (14:28→19:44)
[2022-05-15] MEDS ORDERED: diphenhydrAMINE 50 MG/ML VIAL IV PRN (18:35)
[2022-05-16] MEDS: SODIUM CHLORIDE 0.9% 1000ML 1,000 ML IV SCH ×3 (00:50→17:22)
[2022-05-16] MEDS: CHLORASEPTIC 1.4% SOLN 180 ML BTL MT PRN ×4 (06:07→23:24)
--- NOTE | 2022-05-16 08:49 | XRay Report ---
KUB HISTORY: High-grade small bowel obstruction SBO COMPARISON: KUB 05/15/2022, CT 05/14/2022 FINDINGS: Left lung base opacities. Distal tip of enteric tube projects over the gastric body. Persis tent small bowel dilation with loops measuring up to approximately 4.5 cm. No renal calculi. No uret eral calculi. No pneumoperitoneum or pneumatosis. Lumbar spinal fusion hardware. No fracture. IMPRESSION: 1. Persistent small bowel obstruction. 2. Distal tip of enteric tube projects over the stomach. ACT 112: Negative or not required by law. The above report was generated using voice recognition software. It may contain grammatical, syntax o r spelling errors. Electronically signed by: Armando Jasso M.D. 05/16/2022 8:48 AM
[2022-05-16 09:11] LABS: Hematocrit (blood only) 37.4 % (37-47); Hemoglobin 12.4 g/dL (12.0-16.0); Mean Corpuscular Hemoglobin 31.6 pg (25-34); Mean Corpuscular Hgb Conc 33.2 g/dL (32-36); Mean Corpuscular Volume 95.4 fL (80-100); Mean Platelet Volume 10.1 fL (7.4-10.4); Platelet Count 204 K/uL (130-400); RDW Coefficient of Variation 14.3 % (11.5-14.5); Red Blood Count 3.92 M/uL (4.2-5.4); White Blood Count 5.27 K/uL (4.8-10.8)
[2022-05-16 09:21] LABS: BUN Creatinine Ratio 28.6 (10-20); Calcium 7.8 mg/dl (8.5-10.1); Creatinine Clr Calc Pharmacy 60.8 ml/min; Est GFR (African American) 98.2 ml/min; Est GFR (Non-African American) 84.8 ml/min; Magnesium 1.8 mg/dl (1.7-2.4); Potassium 4.2 mmol/L (3.5-5.1)
--- NOTE | 2022-05-16 11:49 | Surgery Progress Note ---
Date of Service May 16, 2022 Assessment & Plan (1) SBO (small bowel obstruction): Plan: Her KUB from today was reviewed, she still has dilated small bowel indicative of ongoing obstruction She does clinically seem to be improving and has a little bit of return of bowel function We discussed proceeding with exploration versus small bowel follow-through She has no signs of ischemia clinically so we will proceed with a small bowel follow-through today and tentatively place her on the schedule for the OR tomorrow Admission and Anticipated Discharge Date Admission Date: May 14, 2022 Subjective Patient seen and examined. Abdominal pain improved. Denies any nausea or vomiting. She states she had 2 small bowel movements but is not passing much flatus. Afebrile. Hemodynamically stable. Review of Systems Constitutional: no fever and no chills Physical Exam Constitutional: WD/WN, vitals as above ENMT: NG tube in place draining light bilious fluid Gastrointestinal (Abdomen): Soft, minor tenderness to palpation, improved from yesterday No rigidity or guarding Moderate distention Results & Data ([facility]) Vital Signs (Past 12 Hours) Vital Signs Temp Pulse Resp BP Pulse Ox 05/16/22 06:07 36.9 C 72 18 119/64 91 PG Care Time/CCT Total # of Minutes Spent Total Time Spent with Patient: Total time spent is greater than 50% in coordination of care (as documented) at patient's floor/unit and/or counseling patient: Coding Level of Care Code 15838 Subseq Hosp Care Lvl 1 Diagnoses SBO (small bowel obstruction) K56.609
--- NOTE | 2022-05-16 12:26 | Hospitalist Progress Note ---
Date of Service May 16, 2022 Assessment & Plan (1) SBO (small bowel obstruction): Plan: Second episode. First was about 5 years ago and resolved without surgery. Only prior abdominal sx was a hysterectomy. - NPO with maintenance IVF. - NG tube on low-intermittent suction - General surgery consulted, appreciate their recommendations and assistance. Plan for small bowel follow through as KUB still demonstrates SBO. - IV Zofran, Reglan prn for nausea/vomiting, morphine as needed for nausea and pain control. (2) Acute kidney injury: Plan: - CR 1.03, baseline ~0.60.8. - Likely in setting of decreased p.o. intake due to SBO. Also recently started on meloxicam for foot pain. - Follow on morning BMP. Avoid nephrotoxins. -> Cr improving today: 0.7. (3) Fibromyalgia: Plan: - Holding all p.o. meds that cannot be converted to IV formulation. - Takes Lyrica 100 mg twice daily. (4) Hyperlipidemia: Plan: - Holding all p.o. meds that cannot be converted to IV formulation. - Takes atorvastatin 10 mg at night. (5) COPD (chronic obstructive pulmonary disease): Plan: - Anoro inhaler daily as needed. - Has not required since 2019. (6) CAD (coronary artery disease): Plan: No present chest pain or concern for acute cardiac issue. - Holding statin, aspirin for now. (7) Osteoarthritis: Plan: - Hold prednisone, calcium, vitamin D supplements, glucosamine, meloxicam. - No need for stress dose steroids at this time. Plan: - SCDs - Holding heparin in case there is need of surgery. Admission and Anticipated Discharge Date Admission Date: May 14, 2022 Subjective Doing well today. Abdomen is feeling better. Two small BMs overnight and AM. No nausea or vomiting. Physical Exam Constitutional: WD/WN, vitals as above Eyes: EOM intact bilaterally; no conjunctival abnormality ENMT: Nose: + foreign body in naris (NG tube) Neck: trachea midline, no thyromegaly normal visual inspection Respiratory: normal respiratory effort, lungs clear to auscultation no respiratory distress Cardiovascular: RRR, no murmur, no edema Gastrointestinal (Abdomen): Inspection/Auscultation: abdomen normal to inspection and + hypoactive bowel sounds; abdomen not distended Percussion/Palpation: abdomen soft; abdomen nontender, no guarding and abdomen not rigid Musculoskeletal: no cyanosis or clubbing, extremities motor strength 5/5 Skin: no rashes, warm and dry Neurologic: moves all extremities and awake Psychiatric: Orientation: alert, oriented to person and cooperative Results & Data Results & Data ([facility]) Vital Signs (Past 12 Hours) Vital Signs Temp Pulse Resp BP Pulse Ox 05/16/22 06:07 36.9 C 72 18 119/64 91 PG Care Time/CCT Total # of Minutes Spent Total Time Spent with Patient: Total time spent is greater than 50% in coordination of care (as documented) at patient's floor/unit and/or counseling patient: Coding Level of Care Code 48799 Subseq Hosp Care Lvl 2 Diagnoses SBO (small bowel obstruction) K56.609 Acute kidney injury N17.9 Fibromyalgia M79.7 Hyperlipidemia E78.5 COPD (chronic obstructive pulmonary disease) J44.9 COPD type: unspecified COPD CAD (coronary artery disease) I25.10 Osteoarthritis M19.90 (1) COPD (chronic obstructive pulmonary disease) COPD type: unspecified COPD Qualified Code(s): J44.9 - Chronic obstructive pulmonary disease, unspecified
--- NOTE | 2022-05-16 16:41 | Fluoroscopy Report ---
FL small bowel follow through CLINICAL HISTORY: SBO TECHNIQUE: Upper GI Study was performed using standard technique. [employer] images were obtained. Seri al x-ray images were obtained following administration of Optiray through nasogastric tube. FINDINGS: Barium passed into the proximal small bowel freely. No duodenal mass or ulcer was identified. Multip le distended small bowel loops are seen measuring up to 46 mm in diameter. Contrast was noted to pass into the cecum. IMPRESSION: Multiple distended small bowel loops with passage of contrast into the cecum at approximately 2 hours . Findings are favored to represent ileus rather than small bowel obstruction. ACT 112: Negative or not required by law. Electronically signed by: Kemal Mueller M.D. 05/16/2022 4:40 PM
[2022-05-17 07:44] LABS: Hematocrit (blood only) 34.6 % (37-47); Hemoglobin 11.2 g/dL (12.0-16.0); Mean Corpuscular Hemoglobin 30.2 pg (25-34); Mean Corpuscular Hgb Conc 32.4 g/dL (32-36); Mean Corpuscular Volume 93.3 fL (80-100); Mean Platelet Volume 10.9 fL (7.4-10.4); Platelet Count 216 K/uL (130-400); RDW Coefficient of Variation 14.3 % (11.5-14.5); RDW Standard Deviation 49.4 fL (36.4-46.3); Red Blood Count 3.71 M/uL (4.2-5.4); White Blood Count 5.48 K/uL (4.8-10.8)
[2022-05-17 08:08] LABS: BUN Creatinine Ratio 22.2 (10-20); Calcium 7.9 mg/dl (8.5-10.1); Creatinine Clr Calc Pharmacy 67.5 ml/min; Est GFR (African American) 101.7 ml/min; Est GFR (Non-African American) 87.7 ml/min; Magnesium 1.8 mg/dl (1.7-2.4); Potassium 3.5 mmol/L (3.5-5.1)
--- NOTE | 2022-05-17 10:01 | Surgery Progress Note ---
Date of Service May 17, 2022 Assessment & Plan (1) SBO (small bowel obstruction): Plan: resolving contrast reached cecum in 2 hours advance diet as panfilo seen with Dr. Ball Admission and Anticipated Discharge Date Admission Date: May 14, 2022 Supervising Physician Co-Signing Physician Notes I personally saw and evaluated the patient with Wyatt Abrams PA-C and agree with the assessment and plan. 76-year-old female with a small bowel obstruction, improving Small bowel follow-through results and images reviewed, contrast in the cecum and 2 hours with some residual small bowel dilation She is tolerated clear liquids for breakfast, advance her diet as tolerated She is able to tolerate this she can be discharged later today Subjective multiple BMs after SBFT, no pain or nausea, NG out and started clears at breakfast Physical Exam Gastrointestinal (Abdomen): Inspection/Auscultation: abdomen not distended Percussion/Palpation: abdomen soft; abdomen nontender Results & Data ([facility]) Vital Signs (Past 12 Hours) Vital Signs Temp Pulse Resp BP Pulse Ox 05/17/22 07:43 36.9 C 52 L 18 128/75 93 05/16/22 22:53 36.9 C 70 18 137/64 92 PG Care Time/CCT Total # of Minutes Spent Total Time Spent with Patient: Total time spent is greater than 50% in coordination of care (as documented) at patient's floor/unit and/or counseling patient: Coding Level of Care Code 84634 Subseq Hosp Care Lvl 1 Diagnoses SBO (small bowel obstruction) K56.609
--- NOTE | 2022-05-17 13:39 | Discharge Summary ---
Date of Service May 17, 2022 Admission HPI Per Admitting Provider Pemavonda Smith is 76-year-old female with a past medical history significant for COPD, hyperlipidemia, fibromyalgia, and OA who presents today with abdominal pain. On , patient began experiencing sharp, diffuse abdominal pain associated with nausea and multiple episodes of emesis. She has been unable to eat much solid food, however has been staying hydrated with ice chips. She does note a decrease in bowel movements. She regularly has multiple BMs/day, however over the past 2 days has had decreases in amount and caliber. She has had on BM/day, but without flatulence. She does have a history of a bowel obstruction in the past, reports at that time did not require surgical intervention. She does have history of a distant open hysterectomy but denies any other abdominal surgeries. Denies fevers, chest pain, shortness breath, palpitations. In ED, she is hemodynamically stable, slightly hypertensive and elevated HR 97 likely secondary to ongoing pain and emesis. Labs largely unremarkable, with ex ception of slightly elevated creatinine at 1.03. CT A/P showed high-grade small bowel obstruction with a transition point in the midline infraumbilical lower abdomen, with associated and lipidemia and small volume of pelvic ascites, without pneumoperitoneum. Principal Diagnosis Small bowel obstruction Discharge Exam Constitutional WD/WN, vitals as above Eyes EOM intact bilaterally; no conjunctival abnormality Neck trachea midline, no thyromegaly normal visual inspection Respiratory normal respiratory effort, lungs clear to auscultation no respiratory distress Cardiovascular RRR, no murmur, no edema Gastrointestinal (Abdomen) Inspection/Auscultation: abdomen normal to inspection and normal bowel sounds; abdomen not distended Percussion/Palpation: abdomen soft; abdomen nontender, no guarding and abdomen not rigid Musculoskeletal no cyanosis or clubbing, extremities motor strength 5/5 Skin no rashes, warm and dry Neurologic moves all extremities and awake Psychiatric Orientation: alert, oriented to person and cooperative Discharge Data Allergies Allergy/AdvReac Type Severity Reaction Status Date / Time bee venom protein (honey bee) Allergy Severe SWELLING/RA Verified 05/14/22 18:20 SH,SOB Sulfa (Sulfonamide Allergy Intermediate HIVES Verified 05/14/22 18:20 Antibiotics) sulfamethoxazole Allergy Intermediate Hives Verified 05/14/22 18:20 trimethoprim Allergy Intermediate HIVES Verified 05/14/22 18:20 Consultations 05/14/22 20:17 ED Decision to Admit Stat 05/14/22 21:59 Consult General Surgery Routine Procedures Performed Operation Date: 05/17/22 13:10 <No data on this case meets the specified criteria> Ordered Studies 05/14/22 16:16 CT abd pelvis oral and IV con Stat 05/16/22 11:45 [place] small bowel follow through Routine Hospital Course (1) SBO (small bowel obstruction): Second episode. First was about 5 years ago and resolved without surgery. Only prior abdominal sx was a hysterectomy. - NG tube on low-intermittent suction - Removed on 05/16 - General surgery consulted, appreciate their recommendations and assistance. Small bowel follow through showed contrast passing through. - IV Zofran, Reglan prn for nausea/vomiting, morphine as needed for nausea and pain control. - Improved on 05/16 with clear liquids started then. NG tube removed. On 05/17, tolerated normal diet. Plentiful BMs due to the contrast from the small bowel follow-through. Ready for d/c per surgery. (2) Acute kidney injury: - CR 1.03, baseline ~0.60.8. - Likely in setting of decreased p.o. intake due to SBO. Also recently started on meloxicam for foot pain. - Follow on morning BMP. Avoid nephrotoxins. - Resolved by discharge with Cr 0.6. (3) Fibromyalgia: - Takes Lyrica 100 mg twice daily. (4) Hyperlipidemia: - Takes atorvastatin 10 mg at night. (5) COPD (chronic obstructive pulmonary disease): - Anoro inhaler daily as needed. - Has not required since 2019. (6) CAD (coronary artery disease): No present chest pain or concern for acute cardiac issue. - Held statin, aspirin while NPO; return to d/c. (7) Osteoarthritis: - Held prednisone, calcium, vitamin D supplements, glucosamine, meloxicam. - No need for stress dose steroids as BP remained stable. - SCDs - Held heparin in case there is need of surgery. Total Time Total Time Spent Total Time Spent (In Minutes): 35 Discharge Plan Discharge Items Patient Disposition: Home - Self-Care Reason For Visit: SBO Discharge Diagnosis: Small bowel obstruction Activity: Resume your previous activity Non-emergency contact: Primary Care Provider Call non-emergency contact if: your symptoms worsen Follow-up/Referrals: Jono Ball, [Physician] - 06/01/22 9:30 am Jabari Gaines MD [Primary Care Provider] - Diet: Heart Healthy Addtl Attending Provider Instructions: Ms. Smith, You were admitted to the hospital with a small bowel obstruction (SBO). In 80% of the cases, these resolve on their own, and yours did, so that is great! However, the downside is that in about 20% of cases, the SBO recurs within 5 years. You had one occurrence about 5 years ago. If you remain pain-free and this does not happen again, you are great, and nothing needs to be done. If this becomes a frequent occurrence, it does raise the possibility of needing surgery in the future. For now, we are very pleased that you are feeling better, and we are happy to discharge you from the hospital. Please see Dr. Ball in the office in 2-3 weeks to be sure you are doing well. Pending Studies at Discharge: No Stand-Alone Forms: My [facility] [employer], Smoking Cessation Medications and DC Order Prescriptions: Continued aspirin 81 mg Tablet,Delayed Release (Dr/Ec) 81 mg PO HS RF: 0 cholecalciferol (vitamin D3) 50 mcg (2,000 unit) Capsule 50 mcg PO QDD RF: 0 Anoro Ellipta 62.5-25 mcg/actuation Blister With Device 1 inh INHALATION DAILY PRN (Reason: Wheezing) RF: 0 atorvastatin [Lipitor] 10 mg Tablet 10 mg PO HS RF: 0 estradiol 0.075 mg/24 hr Patch Weekly 1 dose Topical WK RF: 0 epinephrine [EpiPen 2-Mesfin] 0.3 mg/0.3 mL Auto-Injector 0.3 mg IM Q3H PRN (Reason: Hypersensitivity Reaction) RF: 0 vitamin B complex Capsule 1 cap PO QAM RF: 0 magnesium oxide 400 mg Capsule 400 mg PO QPM RF: 0 Calcium 600 + D(3) 600 mg calcium- 200 unit Capsule 1 tab PO UD RF: 0 pregabalin [Lyrica] 100 mg Capsule 100 mg PO BID RF: 0 potassium 99 mg Tablet 99 mg PO QAM RF: 0 prednisone 1 mg Tablet 2 mg PO QAM RF: 0 glucosamine sulfate [Glucosamine] 500 mg Tablet 500 mg PO DAILY RF: 0 diphenhydramine HCl 25 mg Tablet 25 mg PO HS PRN (Reason: Sleep) RF: 0 Discharge Orders: Discharge Order (Routine); Ordered 05/17/22 Ordered By: Henrik Min Admission Data Admit Date/Time: 05/14/22 19:51 Attending Provider: Henrik Min Admit Provider: Robert Campos Primary Care Provider: Jabari Gaines Other Providers: Henrik Min ; Jono Ball Other Interventions: Discharge Summary Assessment (RN) Last Done: 05/17/22 12:50 Coding Level of Care Code D/C DAY MANAGEMENT >30 MINS Diagnoses SBO (small bowel obstruction) K56.609 Acute kidney injury N17.9 Fibromyalgia M79.7 Hyperlipidemia E78.5 COPD (chronic obstructive pulmonary disease) J44.9 COPD type: unspecified COPD CAD (coronary artery disease) I25.10 Osteoarthritis M19.90
== END 2022-05-17 18:01 | disposition home or self-care (01) | DRG 389 ==
LOC: ED 14:37 → SUATTDRO 19:51 → 3N 19:51